=== PATIENT | male | born 1995 | race Caucasian/White ===

== ENCOUNTER 2018-08-29 16:32 | Inpatient (IN) | payer OTHER ==
[2018-08-29 18:41] LABS: HEMATOCRIT 48.6 % (42.0-52.0); HEMOGLOBIN 17.3 g/dl (13.5-17.5); MEAN CORPUSCULAR HEMOGLOBIN 30.2 pg (27.0-33.0); MEAN CORPUSCULAR HGB CONC 35.6 g/dl (32.0-36.5); PLATELET COUNT, AUTOMATED 230 10^3/uL (150-450); RED BLOOD COUNT 5.72 10^6/uL (4.30-6.10); RED CELL DISTRIBUTION WIDTH 11.9 % (11.5-14.5); WHITE BLOOD COUNT 7.5 10^3/uL (4.0-10.0)
[2018-08-29 19:07] LABS: AMPHETAMINES LEVEL URINE NEGATIVE (NEGATIVE); BARBITURATES URINE NEGATIVE (NEGATIVE); BENZODIAZEPINES URINE NEGATIVE (NEGATIVE); CANNABINOIDS URINE NEGATIVE (NEGATIVE); COCAINE METABOLITE URINE NEGATIVE (NEGATIVE); METHADONE URINE NEGATIVE (NEGATIVE); OPIATES URINE NEGATIVE (NEGATIVE); PHENCYCLIDINE URINE NEGATIVE (NEGATIVE)
[2018-08-29 19:11] LABS: ALBUMIN 4.7 GM/DL (3.2-5.2); ALBUMIN/GLOBULIN RATIO 1.68 (1.00-1.93); ALKALINE PHOSPHATASE 88 U/L (45-117); ALT/SGPT 22 U/L (12-78); ANION GAP 7 MEQ/L (8-16); AST/SGOT 21 U/L (7-37); BILIRUBIN,DIRECT 0.2 MG/DL (0.0-0.2); BILIRUBIN,TOTAL 0.9 MG/DL (0.2-1.0); BLOOD UREA NITROGEN 8 MG/DL (7-18); CALCIUM LEVEL 9.6 MG/DL (8.5-10.1); CARBON DIOXIDE LEVEL 30 MEQ/L (21-32); CHLORIDE LEVEL 104 MEQ/L (98-107); CREATININE FOR GFR 1.09 MG/DL (0.70-1.30); GLOMERULAR FILTRATION RATE > 60.0 (>60); GLUCOSE, FASTING 88 MG/DL (70-100); POTASSIUM SERUM 4.1 MEQ/L (3.5-5.1); SODIUM LEVEL 141 MEQ/L (136-145); TOTAL PROTEIN 7.5 GM/DL (6.4-8.2)
[2018-08-29 19:25] LABS: ACETAMINOPHEN LEVEL < 2.0 UG/ML (10.0-30.0); SALICYLATE LEVEL < 1.7 MG/DL (5.0-30.0)
[2018-08-29 19:25] LABS: ETHYL ALCOHOL (ETHANOL) < 0.003 % (0.000-0.010)
[2018-08-29] MEDS ORDERED: MOM 30ML SUSPENSION UDC PO (22:15)
[2018-08-29] MEDS ORDERED: MAALOX 30 ML SUSP *UDC PO (22:15)
[2018-08-29] MEDS ORDERED: ACETAMINOPHEN TAB 650MG DOSE (2X325MG) PO (22:15)
[2018-08-30] MEDS: VENLAFAXINE **XR** 75MG CAPSULE PO (12:36)
[2018-08-30] MEDS: traZODone 50 MG TAB PO (20:56)
[2018-08-31] MEDS: VENLAFAXINE **XR** 75MG CAPSULE PO (09:38)
[2018-08-31] MEDS: traZODone 50 MG TAB PO (20:37)
[2018-09-01] MEDS: VENLAFAXINE **XR** 75MG CAPSULE PO (08:48)
[2018-09-01] MEDS: traZODone 50 MG TAB PO (20:31)
[2018-09-02] MEDS: VENLAFAXINE **XR** 75MG CAPSULE PO (08:53)
[2018-09-02] MEDS: traZODone 50 MG TAB PO (21:01)
[2018-09-03] MEDS: VENLAFAXINE **XR** 75MG CAPSULE PO (08:37)
[2018-09-04] MEDS: VENLAFAXINE **XR** 75MG CAPSULE PO ×2 (08:35→10:40)
[2018-09-04] MEDS: traZODone 100 MG TAB PO (21:51)
[2018-09-05] MEDS: VENLAFAXINE **XR** 75MG CAPSULE PO (08:28)
== END 2018-09-05 14:00 | disposition home or self-care (01) | DRG 885 ==
LOC: M PSY 08-30 02:19 → M ED 16:32 → M ED INP 22:10 → M PSY 08-30 21:44
DX: F33.1 Major depressive disorder, recurrent, moderate (principal); R45.851 Suicidal ideations; F41.9 Anxiety disorder, unspecified; Z79.899 Other long term (current) drug therapy